=== PATIENT | female | born 1970 | race Caucasian/White ===

== ENCOUNTER 2017-06-11 03:39 | Emergency (ER) | payer OTHER ==
[2017-06-11 03:53] VITALS: TEMP 98.3; BMI 34.9
[2017-06-11] MEDS ORDERED: SODIUM CHLORIDE 1,000 ML IV ONE (04:01)
[2017-06-11] MEDS ORDERED: KETOROLAC TROMETHAMINE 30 MG/1 ML VIAL IVPUSH ONE (04:01)
[2017-06-11] MEDS ORDERED: METOCLOPRAMIDE HCL INJECTION 10 MG/2 ML VIAL IVPUSH ONE (04:02)
[2017-06-11] MEDS ORDERED: KETOROLAC TROMETHAMINE 30 MG/1 ML VIAL ONE (04:02)
--- NOTE | 2017-06-11 04:07 | PDOC ---
History of Present Illness <AdeolaMeshaAllenParker garcia - Last Filed: 06/11/17 09:03> - General History Source: Patient Exam Limitations: No Limitations - History of Present Illness Initial Comments: 06/11/17 04:02 This is a 47-year-old female who comes in complaining of nausea and vomiting secondary to her migraine headache. Patient said that she had the migraine headache since this afternoon and took a Motrin because she ran out of her normal medication. Patient then took a Vicodin and begin to vomit. Patient comes in for evaluation. Patient said this is her typical migraine. Patient denies any fevers or chills. Patient denies any recent illness or upper respiratory tract infection. Patient is complaining of a mild sore throat. Patient denies any abdominal pain except for when she vomits she says she gets crampy abdominal pain in the area of her epigastric region. Patient denies any diarrhea. Patient said she sometimes does vomit with her migraine headaches. PAST MEDICAL HISTORY: no significant history PAST SURGICAL HISTORY: no significant history FAMILY HISTORY: no pertinant history SOCIAL HISTORY: Pt lives with family and is employed. MEDICATIONS: reviewed ALLERGIES: As per nursing notes Review of Systems General: No fevers or chills, no weakness, no weight loss HEENT: No change in vision. + sore throat,. No ear pain CardioVascular: No chest pain or shortness of breath Respiratory:No cough, or wheezing. Gastrointestinal: no nausea, vomitting, diarrhea or constipation, No rectal bleeding Genitourinary: No dysuria, hematuria, or frequency Musculoskeletal: No joint or muscle pain or swelling Neurologic: + migraine headache, no vertigo, dizziness or loss of consciousness Psychiatric: no depression Skin: No rashes or easy bruising Endocrine: no increased thirst or abnormal weight change Allergic: no skin or latex allergy All other systems reviewed and normal Exam: General: Well-nourished well-developed individual, no acute distress HEENT: Throat: Normal, tonsils normal, + mild erythema no exudate Neck: Supple, no meningeal signs, no lymphadenopathy Eyes::Pupils equal reactive and round, extraocular motion intact, no tenderness on palpation over the frontal or maxillary sinuses Chest: Nontender to palpation Cardiac: S1-S2 normal, regular rate and rhythm, no murmurs rubs or gallops Respiratory: Lungs clear to auscultation bilateral Abdomen: Soft, obese nondistended, normal bowel sounds, nontender to palpation diffusely Extremities: Warm, dry, no cyanosis, clubbing, or edema Skin: No rashes Neuro: Alert and oriented x3, CN II - XII intact, nonfocal exam with normal strength, normal sensation, normal reflexes, normal gait, Psych: Normal mood and affect 06/11/17 06:00 Reevaluation patient symptoms have improved there is been no further vomiting patient does say she feels a little better but still is complaining of significant headache. Given the fact that this is atypical for patient and her migraines I will get a CAT scan of her head to rule out any intracranial pathology or concerning intracranial causes of her headache. Since his simulation technician will be in house shortly I will get the CAT scan when the tech arrives. 07:00 Care of this patient was transferred to Dr. Knight at 7 AM. Case discussed in detail with oncoming Emergency Physician including history, physical exam and ancillary studies. Oncoming Emergency Physician has assumed care for the patient and will complete the evaluation and treatment. Patient is aware of the plan. Pt is clinically unchanged and stable. <Simin Valencia I - Last Filed: 06/12/17 20:45> - General Chief Complaint: Headache Stated Complaint: VOMMITING/ headache Time Seen by Provider: 06/11/17 04:00 Past History <Parker Roberts J - Last Filed: 06/11/17 09:03> - Past Medical History COPD: No Thyroid Disease: Yes - Immunization History Immunization Up to Date: Yes - Suicide/Smoking/Psychosocial Hx Smoking Status: No Smoking History: Never smoked Number of Cigarettes Smoked Daily: 0 Information on smoking cessation initiated: No Hx Alcohol Use: No Drug/Substance Use Hx: No Substance Use Type: None <Simin Valencia I - Last Filed: 06/12/17 20:45> - Past Medical History Allergies/Adverse Reactions: Allergies Allergy/AdvReac Type Severity Reaction Status Date / Time No Known Allergies Allergy Unverified 06/11/17 03:47 Home Medications: Ambulatory Orders Guaifenesin AC [Robitussin-AC] 1 - 2 tsp PO Q4HWA PRN #90 ml MDD 6 06/11/17 Ibuprofen 800 mg PO TID PRN #20 tablet 06/11/17 Levothyroxine [Synthroid -] 75 mcg PO DAILY 06/11/17 Ondansetron [Zofran Odt -] 4 - 8 mg SL TID PRN #10 od.tablet 06/11/17 *Physical Exam - Vital Signs Last Vital Signs Temp Pulse Resp BP Pulse Ox 98.3 F 76 18 111/59 97 06/11/17 03:49 06/11/17 07:25 06/11/17 07:25 06/11/17 07:25 06/11/17 07:25 <Parker Roberts - Last Filed: 06/11/17 09:03> - Vital Signs Last Vital Signs Temp Pulse Resp BP Pulse Ox 98.3 F 76 18 154/77 99 06/11/17 03:49 06/11/17 03:49 06/11/17 03:49 06/11/17 03:49 06/11/17 03:49 <Simin Valencia I - Last Filed: 06/12/17 20:45> ED Treatment Course - LABORATORY CBC & Chemistry Diagram: 06/11/17 04:10 06/11/17 04:00 - ADDITIONAL ORDERS Additional order review: Laboratory Results 06/11/17 06/11/17 06:58 04:00 Sodium 139 Potassium 4.2 Chloride 103 Carbon Dioxide 24 Anion Gap 12 BUN 10 Creatinine 0.7 Creat Clearance w eGFR > 60 Random Glucose 152 H Calcium 8.9 Total Bilirubin 1.0 AST 21 ALT 30 Alkaline Phosphatase 86 Total Protein 7.8 Albumin 3.6 Urine HCG, Qual Negative 06/11/17 04:10 RBC 4.75 MCV 84.7 MCHC 33.1 RDW 14.4 MPV 8.5 Neutrophils % 72.6 Lymphocytes % 21.9 Monocytes % 3.8 Eosinophils % 0.8 Basophils % 0.9 - Medications Given in the ED: ED Medications Discontinued Medications Generic Name Dose Route Start Last Admin Trade Name Frejohnie PRN Reason Stop Dose Admin Acetaminophen 1,000 mg 06/11/17 06:43 06/11/17 06:59 Ofirmev Injection - IVPB 06/11/17 06:44 1,000 mg ONCE ONE Administration Sodium Chloride 1,000 mls @ 1,000 mls/hr 06/11/17 04:01 06/11/17 04:08 Normal Saline - IV 06/11/17 05:00 1,000 mls/hr .Q1H ONE Administration Ketorolac Tromethamine 30 mg 06/11/17 04:01 06/11/17 04:09 Toradol Injection - IVPUSH 06/11/17 04:02 30 mg ONCE ONE Administration Metoclopramide HCl 10 mg 06/11/17 04:02 06/11/17 04:09 Reglan Injection - IVPUSH 06/11/17 04:03 10 mg ONCE ONE Administration <Parker Roberts - Last Filed: 06/11/17 09:03> - LABORATORY CBC & Chemistry Diagram: 06/11/17 04:10 06/11/17 04:00 <Simin Valencia I - Last Filed: 06/12/17 20:45> *DC/Admit/Observation/Transfer <Parker Roberts - Last Filed: 06/11/17 09:03> - Discharge Dispostion Admit: No <Simin Valencia I - Last Filed: 06/12/17 20:45> Diagnosis at time of Disposition: Migraine headache without aura Qualifiers: Status migrainosus presence: with status migrainosus Intractability: not intractable Qualified Code(s): G43.001 - Migraine without aura, not intractable , with status migrainosus - Discharge Dispostion Disposition: HOME Condition at time of disposition: Improved - Prescriptions Prescriptions: Guaifenesin AC [Robitussin-AC] 1 - 2 tsp PO Q4HWA PRN #90 ml MDD 6 PRN Reason: Cough Ibuprofen 800 mg PO TID PRN #20 tablet PRN Reason: Headache Ondansetron [Zofran Odt -] 4 - 8 mg SL TID PRN #10 od.tablet PRN Reason: Nausea And/Or Vomiting - Patient Instructions Printed Discharge Instructions: Migraine -- Adult, DI for Migraine Additional Instructions: For the headache U can take Tylenol or ibuprofen. CT scan negative If the headache persists call your primary care doctor and follow-up with your primary care doctor. Return to the emergency department immediately with ANY new, persistent or worsening symptoms. Continue any medications as previously prescribed by your physician. You should follow up with your primary doctor as soon as possible regarding today's emergency department visit. . Please make sure your doctor reviews the results of your emergency evaluation. Thank you for coming to the Emergency Department today for your care. It was a pleasure to see you today. Please note that your evaluation is INCOMPLETE until you follow-up with your doctor.
[2017-06-11 04:45] LABS: BASOPHIL 0.9 % (0-2.0); EOSINOPHIL 0.8 % (0-4.5); MCHC 33.1 g/dl (32.0-36.0); MEAN CELL VOLUME 84.7 fl (80-96); MEAN PLT VOLUME 8.5 fl (7.5-11.1); NEUTROPHILS 72.6 % (42.8-82.8); PLATELET COUNT 435 K/MM3 (134-434); RDW 14.4 % (11.6-15.6); WHITE BLOOD COUNT 11.3 K/mm3 (4.0-10.0)
[2017-06-11 05:20] LABS: ALBUMIN 3.6 g/dl (3.4-5.0); ALK PHOS 86 U/L (45-117); ANION GAP 12 (8-16); CALCIUM 8.9 mg/dL (8.5-10.1); CO2 24 mmol/L (21-32); CREATININE 0.7 mg/dL (0.55-1.02); GLUCOSE,RANDOM 152 mg/dL (74-106); SGOT/AST 21 U/L (15-37); SGPT/ALT 30 U/L (12-78); TOT PROT 7.8 g/dl (6.4-8.2)
[2017-06-11] MEDS ORDERED: ACETAMINOPHEN 1000 MG/100 ML VIAL (NON FORMULARY) IVPB ONE (06:43)
[2017-06-11] MEDS ORDERED: ACETAMINOPHEN INJECTION 100 ML IVPB ONE (06:55)
[2017-06-11 09:16] VITALS: BP 126/66; PULSE 74
--- NOTE | 2017-06-11 09:22 | PDOC ---
*Physical Exam - Vital Signs Last Vital Signs Temp Pulse Resp BP Pulse Ox 98.3 F 74 18 126/66 95 06/11/17 03:49 06/11/17 09:15 06/11/17 07:25 06/11/17 09:15 06/11/17 09:15 - Physical Exam Comments: 06/11/17 09:20 CT is negative Patient is much improved. No further nausea or vomiting. Headache resolved. Fully ambulatory and in no pain or other distress upon discharge. Zofran, ibuprofen, and antitussives prescribed. To follow up with Dr. Sheppard, her primary physician. Return to ER if symptoms worsen or additional symptoms develop. ED Treatment Course - LABORATORY CBC & Chemistry Diagram: 06/11/17 04:10 06/11/17 04:00 - ADDITIONAL ORDERS Additional order review: Laboratory Results 06/11/17 06/11/17 06:58 04:00 Sodium 139 Potassium 4.2 Chloride 103 Carbon Dioxide 24 Anion Gap 12 BUN 10 Creatinine 0.7 Creat Clearance w eGFR > 60 Random Glucose 152 H Calcium 8.9 Total Bilirubin 1.0 AST 21 ALT 30 Alkaline Phosphatase 86 Total Protein 7.8 Albumin 3.6 Urine HCG, Qual Negative 06/11/17 04:10 RBC 4.75 MCV 84.7 MCHC 33.1 RDW 14.4 MPV 8.5 Neutrophils % 72.6 Lymphocytes % 21.9 Monocytes % 3.8 Eosinophils % 0.8 Basophils % 0.9 - Medications Given in the ED: ED Medications Discontinued Medications Generic Name Dose Route Start Last Admin Trade Name Freq PRN Reason Stop Dose Admin Acetaminophen 1,000 mg 06/11/17 06:43 06/11/17 06:59 Ofirmev Injection - IVPB 06/11/17 06:44 1,000 mg ONCE ONE Administration Sodium Chloride 1,000 mls @ 1,000 mls/hr 06/11/17 04:01 06/11/17 04:08 Normal Saline - IV 06/11/17 05:00 1,000 mls/hr .Q1H ONE Administration Ketorolac Tromethamine 30 mg 06/11/17 04:01 06/11/17 04:09 Toradol Injection - IVPUSH 06/11/17 04:02 30 mg ONCE ONE Administration Metoclopramide HCl 10 mg 06/11/17 04:02 06/11/17 04:09 Reglan Injection - IVPUSH 06/11/17 04:03 10 mg ONCE ONE Administration *DC/Admit/Observation/Transfer Diagnosis at time of Disposition: Migraine headache without aura Qualifiers: Status migrainosus presence: with status migrainosus Intractability: not intractable Qualified Code(s): G43.001 - Migraine without aura, not intractable , with status migrainosus - Discharge Dispostion Disposition: HOME Condition at time of disposition: Improved - Prescriptions Prescriptions: Guaifenesin AC [Robitussin-AC] 1 - 2 tsp PO Q4HWA PRN #90 ml MDD 6 PRN Reason: Cough Ibuprofen 800 mg PO TID PRN #20 tablet PRN Reason: Headache Ondansetron [Zofran Odt -] 4 - 8 mg SL TID PRN #10 od.tablet PRN Reason: Nausea And/Or Vomiting - Referrals - Patient Instructions Printed Discharge Instructions: Migraine -- Adult, DI for Migraine Additional Instructions: For the headache U can take Tylenol or ibuprofen. CT scan negative If the headache persists call your primary care doctor and follow-up with your primary care doctor. Return to the emergency department immediately with ANY new, persistent or worsening symptoms. Continue any medications as previously prescribed by your physician. You should follow up with your primary doctor as soon as possible regarding today's emergency department visit. . Please make sure your doctor reviews the results of your emergency evaluation. Thank you for coming to the Emergency Department today for your care. It was a pleasure to see you today. Please note that your evaluation is INCOMPLETE until you follow-up with your doctor. - Post Discharge Activity
== END 2017-06-11 09:29 | disposition home or self-care (01) ==
LOC: FER 03:39
PROC: 3E033NZ Introduction of Analgesics, Hypnotics, Sedatives into Peripheral Vein, Percutaneous Approach (ICD-10-PCS; principal; 2017-06-11)
PROC: 3E0333Z Introduction of Anti-inflammatory into Peripheral Vein, Percutaneous Approach (ICD-10-PCS; 2017-06-11)
PROC: 3E033GC Introduction of Other Therapeutic Substance into Peripheral Vein, Percutaneous Approach (ICD-10-PCS; 2017-06-11)
PROC: 3E0337Z Introduction of Electrolytic and Water Balance Substance into Peripheral Vein, Percutaneous Approach (ICD-10-PCS; 2017-06-11)
DX: G43.001 Migraine without aura, not intractable, with status migrainosus (principal); E07.9 Disorder of thyroid, unspecified
CPT/HCPCS: 36415; 70450-TC; 80053; 84703; 85025; 96361; 96374; 96375; 99282-25